=== PATIENT | male | born 1965 | race Caucasian/White ===

== ENCOUNTER 2017-04-12 00:39 | Emergency (ER) | payer MEDICAID ==
[~2017-04-12] VITALS: Ht 188 cm; Wt 126.1 kg
[~2017-04-12 00:39] MED LIST: PHENERGAN25 M3 PO
[2017-04-12] MEDS ORDERED: HCTZ/LISINOPRIL1 TA3 PO (00:45)
--- NOTE | 2017-04-12 00:58 | Emergency Room Report ---
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 NORMALLY SOFTBALL SIZED BUT COUGHED AND FELT IT POP. 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 N Clinical Suspician of Infection? N Mental Status: 1 - Regular (Normal Baseline) Sepsis Risk:Low Sepsis Risk Have you (or family members/close friends) recently traveled outside the [place]? N If Yes, where/when: Have you had exposure to infectious disease within the past month? N TB? Other? Specify: Source patient, RN notes reviewed, family, RN/MD Exam Limitations no limitations Comment This is a 51-year-old gentleman presented to the emergency room with severe abdominal pain, onset approximately half an hour prior to arrival, after episode of coughing. Patient has had a ventral hernia unknown for many years, however he has never seen a surgeon in order to be evaluated for hernia repair. Patient stated that he was trying to lose weight prior to contemplating any other treatments. advise that prior to above incident the patient had a small soft tissue bulging in midline for which he was wearing an abdominal binder. ALLERGIES Coded Allergies: No Known Allergies (06/15/15) Home Medications Reported Medications LISINOPRIL/HYDROCHLOROTHIAZIDE (Lisinopril-Hctz 20-12.5 MG Tab) 1 TAB PO DAILY #30 History Medical History General CAD? No Angina: No [place]: No Hypertension? No Hyperlipidemia? No CHF? No DVT? No PE? No COPD? No Asthma? No Anemia? No GERD? No Gastric ulcers? No GI Bleed? No Hernia? Yes Thyroid Problems? No Hypothyroidism? No CVA? No Seizures? No Diabetes? No Renal Insuffiency? No End Stage Renal Disease? No UTI? No Stones? No BPH? No GB Disease: No Nephritic Syndrome? No Asplenia? No Hepatitis? No Sickle Cell Disease? No Arthritis? No Migraines? No Cataracts? No Glaucoma? No MRSA? No HIV? No TB? No Anxiety? No Depression? No Cancer? No Immunization Hx DT/Tetanus > 10 Years Ago Surgical Hx Previous Surgery?N Social History Smoking Hx Smoker: Unknown if Ever Smoked Tobacco: No Packs/day < 1 Pack Alcohol Alcohol: No Review of Systems All Other Systems Reviewed and Negative Gastrointestinal abdominal pain Physical Exam Vital Signs Vital Signs Date Time Temp Pulse Resp B/P Pulse O2 O2 Flow FiO2 Ox Delivery Rate 04/12 0117 97.3 83 20 165/107 96 04/12 0105 20 04/12 0054 97.3 71 20 164/103 94 04/12 0049 24 04/12 0040 97.3 77 20 170/87 97 General Appearance normal appearance, WD/WN, severe distress, diaphoretic Respiratory Status Yes: trachea midline, chest symmetrical, non tender chest. No: respiratory distress. Lung Sounds bilateral: normal breath sounds, lungs clear. 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 Medical Decision Making LABS/Meds/Orders Pt receiving controlled substance in ED? No Comment 00:45am-failed attempt made to reduce the patient's ventral hernia, after administration of the IV Dilaudid/Zofran. Patient requested to abort procedure, due to increased discomfort. 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 Dr Berg ( not in town, npt available to come to the ER) requested the patient to be transferred to ER, where he will see the patient, upon his arrival. Will cancel the CT scan A/P with iv dye, in order to speed up the transfer (surgeon aware of this). Patient concerned with possible strangulation of the patient's ventral hernia. 00:55am-case d/w [facility] transfer center (call picked up by Malgorzata - rn transfer), advised of the above, including arrangements already made with Dr Berg to accept the patient for transfer to the ER. Prior to transfer I have advised patient of possible complications including bowel ischemia, bowel resection, bowel perforation, peritonitis, , etc. Results/Orders Laboratory Tests 04/12/1747: Sodium 136, Potassium 3.5, Chloride 99, Carbon Dioxide 22, BUN 15, Creatinine 1.2, Estimated Creat Clear 131, Estimated GFR (MDRD) 64, Glucose 139 H, Calcium 8.8, Total Bilirubin 0.5, AST 18, ALT 27, Alkaline Phosphatase 89, Total Protein 7.5, Albumin 4.0, Globulin 3.5 H, Albumin/Globulin Ratio 1.1, Amylase 51, Lipase 116, WBC 24.4 *H, RBC 5.15, Hgb 15.7, Hct 47.1, MCV 91.5, RDW 16.7, Plt Count 391, MPV 7.1 L, Gran % 54.8, Gran # 13.4 H, Total Counted 100, Lymphocytes % 34.0, Monocytes % 8.4, Eosinophils % 1.9, Basophils % 0.9, Neutrophils 61, Band Neutrophils 9 H, Lymphocytes (Manual) 26, Lymphocytes # 8.3 H, Monocytes (Manual) 2, Monocytes # 2.1 H, Eosinophils # 0.5 H, Eosinophils # (Manual) 2, Basophils # 0.2, Platelet Estimate NORMAL, Anisocytosis 1+, Microcytosis 1+, PUBS MCHC 33.3, MCH 30.4 04/12/1740: Urine Color Cancelled, Urine Appearance Cancelled, Urine pH Cancelled, Ur Specific [place] Cancelled Current Medication Orders Sig/Gabino Start time Last Medication Dose Route Stop Time Status Admin Hydromorphone HCl 1 MG ONCE ONE 04/12 115 DC 04/12 IV 04/12 116 010 Hydromorphone HCl 0 .STK-MED ONE 04/12 103 DC .ROUTE Sodium Chloride 1,000 ML .STK-MED ONE 04/12 47 DC IV Hydromorphone HCl 2 MG ONCE ONE 04/12 45 DC 04/12 IV 04/12 46 004 Ondansetron HCl 4 MG ONCE ONE 04/12 45 DC 04/12 IV 04/12 46 004 Sodium Chloride 1,000 ML .Q1H1M 04/12 45 DC 04/12 IV 04/125 0049 Sodium Chloride 10 ML PRN PRN 04/12 45 DCD IV 04/13 004 Orders Procedure Date/time Status DIET-NOTHING BY MOUTH 04/12 B Active DIFFERENTIAL-WBC 04/12 48 Complete LIPASE 04/12 41 Complete CBC WITH AUTO DIFF 04/12 41 Complete CHEM 12 PROFILE 04/12 41 Complete AMYLASE 04/12 41 Complete Departure Departure Time of Disposition 0057 Disposition DC/XFER from ER to T.. Hosp Clinical Impression Primary Impression: Strangulated ventral hernia Secondary Impressions: Leukocytosis Qualifiers: Leukocytosis type: unspecified Qualified Code: D72.829 - Elevated white blood cell count, unspecified Condition STABLE Additional Instructions You are being transferred to ER, care of Dr Haider Berg, for evaluation of your ventral hernia. ED Critical Care Critical Care Yes Time spent < 30 min Vital system(s) involved: ventral hernia I was present at bedside for Coordinating pt's care, During my initial exam, Reviewing old records, Discussing pt condition If Critical Care minutes are documented, the time involved in the performance of seperately reportable procedures was not counted toward critical care time documented. I directly delivered medical care to this critically ill and/or injured patient. Timely evaluation and treatment was necessary to address the significant organ system(s) dysfunction present in this patient. at 1002
--- NOTE | 2017-04-12 00:58 | Emergency Room Report ---
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 NORMALLY SOFTBALL SIZED BUT COUGHED AND FELT IT POP. 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 N Clinical Suspician of Infection? N Mental Status: 1 - Regular (Normal Baseline) Sepsis Risk:Low Sepsis Risk Have you (or family members/close friends) recently traveled outside the [place]? N If Yes, where/when: Have you had exposure to infectious disease within the past month? N TB? Other? Specify: Source patient, RN notes reviewed, family, RN/MD Exam Limitations no limitations Comment This is a 51-year-old gentleman presented to the emergency room with severe abdominal pain, onset approximately half an hour prior to arrival, after episode of coughing. Patient has had a ventral hernia unknown for many years, however he has never seen a surgeon in order to be evaluated for hernia repair. Patient stated that he was trying to lose weight prior to contemplating any other treatments. advise that prior to above incident the patient had a small soft tissue bulging in midline for which he was wearing an abdominal binder. ALLERGIES Coded Allergies: No Known Allergies (06/15/15) Home Medications Reported Medications LISINOPRIL/HYDROCHLOROTHIAZIDE (Lisinopril-Hctz 20-12.5 MG Tab) 1 TAB PO DAILY #30 History Medical History General CAD? No Angina: No [place]: No Hypertension? No Hyperlipidemia? No CHF? No DVT? No PE? No COPD? No Asthma? No Anemia? No GERD? No Gastric ulcers? No GI Bleed? No Hernia? Yes Thyroid Problems? No Hypothyroidism? No CVA? No Seizures? No Diabetes? No Renal Insuffiency? No End Stage Renal Disease? No UTI? No Stones? No BPH? No GB Disease: No Nephritic Syndrome? No Asplenia? No Hepatitis? No Sickle Cell Disease? No Arthritis? No Migraines? No Cataracts? No Glaucoma? No MRSA? No HIV? No TB? No Anxiety? No Depression? No Cancer? No Immunization Hx DT/Tetanus > 10 Years Ago Surgical Hx Previous Surgery?N Social History Smoking Hx Smoker: Unknown if Ever Smoked Tobacco: No Packs/day < 1 Pack Alcohol Alcohol: No Review of Systems All Other Systems Reviewed and Negative Gastrointestinal abdominal pain Physical Exam Vital Signs Vital Signs Date Time Temp Pulse Resp B/P Pulse O2 O2 Flow FiO2 Ox Delivery Rate 04/12 0117 97.3 83 20 165/107 96 04/12 0105 20 04/12 0054 97.3 71 20 164/103 94 04/12 0049 24 04/12 0040 97.3 77 20 170/87 97 General Appearance normal appearance, WD/WN, severe distress, diaphoretic Respiratory Status Yes: trachea midline, chest symmetrical, non tender chest. No: respiratory distress. Lung Sounds bilateral: normal breath sounds, lungs clear. 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 Medical Decision Making LABS/Meds/Orders Pt receiving controlled substance in ED? No Comment 00:45am-failed attempt made to reduce the patient's ventral hernia, after administration of the IV Dilaudid/Zofran. Patient requested to abort procedure, due to increased discomfort. 00:50am-case discussed with general surgeon tonal regulator, covering for [facility], Dr Haider Berg ( attending), advised of the patient's presentation and history, inability to reduce his ventral hernia. Dr Berg ( not in town, npt available to come to the ER) requested the patient to be transferred to ER, where he will see the patient, upon his arrival. Will cancel the CT scan A/P with iv dye, in order to speed up the transfer (surgeon aware of this). Patient concerned with possible strangulation of the patient's ventral hernia. 00:55am-case d/w [facility] transfer center (call picked up by Malgorzata - clinical care coordinator), advised of the above, including arrangements already made with Dr Berg to accept the patient for transfer to the ER. Prior to transfer I have advised patient of possible complications including bowel ischemia, bowel resection, bowel perforation, peritonitis, , etc. Results/Orders Laboratory Tests 04/12/1747: Sodium 136, Potassium 3.5, Chloride 99, Carbon Dioxide 22, BUN 15, Creatinine 1.2, Estimated Creat Clear 131, Estimated GFR (MDRD) 64, Glucose 139 H, Calcium 8.8, Total Bilirubin 0.5, AST 18, ALT 27, Alkaline Phosphatase 89, Total Protein 7.5, Albumin 4.0, Globulin 3.5 H, Albumin/Globulin Ratio 1.1, Amylase 51, Lipase 116, WBC 24.4 *H, RBC 5.15, Hgb 15.7, Hct 47.1, MCV 91.5, RDW 16.7, Plt Count 391, MPV 7.1 L, Gran % 54.8, Gran # 13.4 H, Total Counted 100, Lymphocytes % 34.0, Monocytes % 8.4, Eosinophils % 1.9, Basophils % 0.9, Neutrophils 61, Band Neutrophils 9 H, Lymphocytes (Manual) 26, Lymphocytes # 8.3 H, Monocytes (Manual) 2, Monocytes # 2.1 H, Eosinophils # 0.5 H, Eosinophils # (Manual) 2, Basophils # 0.2, Platelet Estimate NORMAL, Anisocytosis 1+, Microcytosis 1+, PUBS MCHC 33.3, MCH 30.4 04/12/1740: Urine Color Cancelled, Urine Appearance Cancelled, Urine pH Cancelled, Ur Specific [place] Cancelled Current Medication Orders Sig/Gabino Start time Last Medication Dose Route Stop Time Status Admin Hydromorphone HCl 1 MG ONCE ONE 04/12 115 DC 04/12 IV 04/12 116 010 Hydromorphone HCl 0 .STK-MED ONE 04/12 103 DC .ROUTE Sodium Chloride 1,000 ML .STK-MED ONE 04/12 47 DC IV Hydromorphone HCl 2 MG ONCE ONE 04/12 45 DC 04/12 IV 04/12 46 004 Ondansetron HCl 4 MG ONCE ONE 04/12 45 DC 04/12 IV 04/12 46 004 Sodium Chloride 1,000 ML .Q1H1M 04/12 45 DC 04/12 IV 04/125 0049 Sodium Chloride 10 ML PRN PRN 04/12 45 DCD IV 04/13 004 Orders Procedure Date/time Status DIET-NOTHING BY MOUTH 04/12 B Active DIFFERENTIAL-WBC 04/12 48 Complete LIPASE 04/12 41 Complete CBC WITH AUTO DIFF 04/12 41 Complete CHEM 12 PROFILE 04/12 41 Complete AMYLASE 04/12 41 Complete Departure Departure Time of Disposition 0057 Disposition DC/XFER from ER to T.. Hosp Clinical Impression Primary Impression: Strangulated ventral hernia Secondary Impressions: Leukocytosis Qualifiers: Leukocytosis type: unspecified Qualified Code: D72.829 - Elevated white blood cell count, unspecified Condition STABLE Additional Instructions You are being transferred to ER, care of Dr Haider Berg, for evaluation of your ventral hernia. ED Critical Care Critical Care Yes Time spent < 30 min Vital system(s) involved: ventral hernia I was present at bedside for Coordinating pt's care, During my initial exam, Reviewing old records, Discussing pt condition If Critical Care minutes are documented, the time involved in the performance of seperately reportable procedures was not counted toward critical care time documented. I directly delivered medical care to this critically ill and/or injured patient. Timely evaluation and treatment was necessary to address the significant organ system(s) dysfunction present in this patient. at 1002
[2017-04-12 01:01] LABS: LYMPH # 8.3 K/mm3 (0.7-4.5)
[2017-04-12 01:03] LABS: HEMOGLOBIN 15.7 g/dL (14.1-18.0)
[2017-04-12 01:13] LABS: NEUTROPHILS 61 % (42-76)
[2017-04-12 01:17] VITALS: BP 165/107
--- OUTSIDE RECORDS SUMMARY | 2017-04-12 01:50 | External Medical Summary Rpt | CCD ---
Author Author [employer] Organization [employer] Address Unknown Phone Unavailable Purpose Continuity of Care Document - through 2016
--- OUTSIDE RECORDS SUMMARY | 2017-04-12 01:50 | External Medical Summary Rpt | CCD ---
Author Author , MASON CUEVAS Address Unknown Phone [email or web address] Purpose Continuity of Care Document - 04-12-2017 through 2016 Results Labs Lab Lab Date Result Refere Interp Status Commen Order Detail nces retati t Range on Amylase ser/plas (04-12-2017 00:48) Amylase 04-12-2 = 51 25-115 complet 017 U/L ed ser/jose 00:48 s Comprehensive metabolic panel (04-12-2017 00:48) Serum 04-12-2 = 1.1 1.1-1.8 complet or 017 ed plasma 00:48 albumin /globul in mass ra Serum 2 = 4.0 3.4-5.0 complet or 017 gm/dL ed plasma 00:48 albumin measure ment (mas Serum 2 = 89 46-116 complet or 017 U/L ed plasma 00:48 alkalin e phospha tase juan Serum 04-12-2 = 0.5 0.2-1.0 complet or 017 mg/dL ed plasma 00:48 total bilirub in measure m Serum 04-12-2 = 15 7-18 complet or 017 mg/dL ed plasma 00:48 urea nitroge n measure men Serum 04-12-2 = 8.8 8.5-10. complet or 017 mg/dL 1 ed plasma 00:48 calcium measure ment (mas Serum 2 = 99 98-107 complet or 017 mmoL/L ed plasma 00:48 chlorid e measure ment (mo Carbon 04-12-2 = 22 21.0-32 complet dioxide 017 mmoL/L .0 ed 00:48 measure ment Serum 04-12-2 = 1.2 0.70-1. complet or 017 mg/dL 30 ed plasma 00:48 creatin ine measure ment ( Estimat 04-12-2 = 131 50-200 complet ion of 017 ML/MIN ed creatin 00:48 ine renal clearan ce Estimat = 64 >60 complet ed 017 ML/MIN ed glomeru 00:48 lar filtrat ion rate (GF Comment: REFERENCE RANGE: >60 ML/MIN/1.73 SQUARE METERS Comment: If this patient is -Malawian, then multiply the Comment: result by 1.210. Serum = 3.5 1.3-3.2 complet globuli 017 gm/dL ed n 00:48 measure ment (mass/v olume) Serum = 139 74-106 complet or 017 mg/dL ed plasma 00:48 glucose measure ment (mas Serum = 3.5 3.5-5.1 complet potassi 017 mmoL/L ed um 00:48 measure ment Serum = 136 136-145 complet sodium 017 mmoL/L ed measure 00:48 ment Serum = 18 15-37 complet or 017 U/L ed plasma 00:48 asparta te aminotr ansfera ALT = 27 12-78 complet (SGPT) 017 U/L ed ser/jose 00:48 s Protein = 7.5 6.4-8.2 complet total 017 gm/dL ed ser/jose 00:48 s Lipase measurement (04-12-2017 00:48) Lipase = 116 73-393 complet measure 017 U/L ed ment 00:48 CBC w auto diff (04-12-2017 00:48) Automat = 0.2 0-0.2 complet ed 017 K/MM3 ed blood 00:48 basophi l count (count/ vo Baso % = 0.9 % 0.1-2.0 complet 017 ed 00:48 Automat = 0.5 0.0-0.4 complet ed 017 K/mm3 ed blood 00:48 eosinop hil count Automat = 1.9 % 0.1-12. complet ed 017 0 ed blood 00:48 eosinop hils/10 0 leukocy t Blood = 13.4 1.3-8.0 complet granulo 017 K/mm3 ed cytes 00:48 automat ed count (numb Granulo = 54.8 37.0-80 complet cyte 017 % .0 ed percent 00:48 age Blood = 47.1 42.0-52 complet hematoc 017 % .0 ed rit 00:48 (volume fractio n) Blood = 15.7 14.1-18 complet hemoglo 017 g/dL .0 ed bin 00:48 measure ment (mass/v olum Absolut = 8.3 0.7-4.5 complet e 017 K/mm3 ed lymphoc 00:48 yte count Lymphoc = 34.0 10-50 complet yte 017 % ed count, 00:48 blood, automat ed Mean = 30.4 27-31.2 complet corpusc 017 pg ed ular 00:48 hemoglo bin (MCH) determ Automat = 33.3 31.8-35 complet ed 017 g/dl .4 ed erythro 00:48 cyte mean corpusc ular h Automat = 91.5 82.2-97 complet ed 017 fl .8 ed erythro 00:48 cyte mean corpusc ular v Absolut = 2.1 0.1-1.0 complet e 017 K/mm3 ed monocyt 00:48 e count [place] % = 8.4 % 1.7-9.3 complet 017 ed 00:48 Automat = 7.1 7.4-10. complet ed 017 fl 4 ed blood 00:48 platele t mean volume juan Blood = 391 142-424 complet platele 017 K/mm3 ed t count 00:48 Red = 5.15 4.6-6.2 complet blood 017 M/mm3 ed cell 00:48 count Automat = 16.7 11.5-17 complet ed 017 % .5 ed erythro 00:48 cyte distrib ution width Blood = 24.4 4.8-10. complet leukocy 017 K/MM3 8 ed ida 00:48 count (number /volume ) Differential panel, method unspecified - (04-12-2017 00:48) LYMPH 04-12- 26 % 10-50 complet 017 ed 00:48 Periphe 1+ 1+ L complet ral 017 ed blood 00:48 smear examina tion by ebony Monocyt = 2 % 2-9 complet e % 017 ed 00:48 Platele NORMAL complet t 017 NORMAL ed estimat 00:48 L e Neutrop = 61 % 42-76 complet hil 017 ed count 00:48 Blood = 100 complet total 017 #CELLS ed cell 00:48 count Blood 1+ 1+ L complet anisocy 017 ed tosis 00:48 detecti on Automat = 9 % 0-8 complet ed 017 ed blood 00:48 band neutrop hil percent a Manual = 2 % 0-3 complet blood 017 ed eosinop 00:48 hils/10 0 leukocy ida
--- OUTSIDE RECORDS SUMMARY | 2017-04-12 01:50 | External Medical Summary Rpt | CCD ---
Author Author , MASON CUEVAS Address Unknown Phone [email or web address] Purpose Continuity of Care Document - 04-12-2017 [...] SQUARE METERS Comment: If this patient is -Senegalese, then multiply the Comment: result by 1.210. [...] 017 K/mm3 ed monocyt 00:48 e count [place] % = 8.4 % 1.7-9.3 complet 017 [...]
--- OUTSIDE RECORDS SUMMARY | 2017-04-12 01:51 | External Medical Summary Rpt | CCD ---
Demographics Preferred Language Peruvian Marital Status Unknown Mandaeism Affiliation Unknown Race Unknown Ethnic Group Unknown Author Author , MASON CUEVAS Address Unknown Phone Immunization Unable to retrieve immunization data due to connection failure with Immunization Registry. Please try again later.
--- OUTSIDE RECORDS SUMMARY | 2017-04-12 01:51 | External Medical Summary Rpt | CCD ---
Demographics Preferred Language Slovak Marital Status Unknown Sabianist Affiliation Unknown Race Unknown Ethnic Group Unknown Author Author , MASON CUEVAS Address Unknown Phone Immunization Unable to retrieve immunization data due to connection failure with Immunization Registry. Please try again later.
== END 2017-04-12 02:04 | disposition short-term general hospital (02) ==
LOC: ER 00:39
PROVIDERS: Emergency Medicine
DX: K43.6 Other and unspecified ventral hernia with obstruction, without gangrene (principal); D72.829 Elevated white blood cell count, unspecified; Z79.899 Other long term (current) drug therapy
CPT/HCPCS: J2405